=== PATIENT | male | born 1965 | race African-American/Black ===

== ENCOUNTER 2017-07-06 20:04 | Emergency (ER) | payer OTHER ==
[~2017-07-06] VITALS: Ht 165.1 cm; Wt 91.6 kg
[2017-07-06] MEDS ORDERED: IBUPROFEN 400 MG TAB PO ONE (20:45)
[2017-07-06] MEDS ORDERED: ROBAXIN-750750 MG PO (20:47)
[2017-07-06] MEDS ORDERED: PEPCID20 MG PO (20:47)
[2017-07-06] MEDS ORDERED: MELOXICAM7.5 MG PO (20:47)
[2017-07-06 20:49] VITALS: BP 142/79
== END 2017-07-06 20:51 | disposition home or self-care (01) ==
LOC: FSED 20:04
DX: M54.2 Cervicalgia (principal); S16.1XXA Strain of muscle, fascia and tendon at neck level, initial encounter; V43.52XA Car driver injured in collision with other type car in traffic accident, initial encounter; Y92.488 Other paved roadways as the place of occurrence of the external cause
CPT/HCPCS: 99282